=== PATIENT | male | born 1975 | race Two or more races ===

== ENCOUNTER → 2022-05-13 | Emergency (ER) | payer OTHER ==
[~2022-05-13] VITALS: Ht 175.3 cm; Wt 56.7 kg
[~2022-05-13] MED LIST: TOPROL XL25 M1 PO
== END | disposition left against medical advice (07) ==
LOC: ER 08:29
DX: R06.02 Shortness of breath (principal); J93.9 Pneumothorax, unspecified; A49.3 Mycoplasma infection, unspecified site; I10 Essential (primary) hypertension; Z72.0 Tobacco use; Z20.822 Contact with and (suspected) exposure to COVID-19

== ENCOUNTER 2022-05-14 08:01 | Emergency (ER) | payer OTHER ==
[~2022-05-14] VITALS: Ht 175.3 cm; Wt 59.0 kg
== END 2022-05-14 11:12 | disposition home or self-care (01) ==
LOC: ER 08:01
DX: U07.1 COVID-19 (principal); J22 Unspecified acute lower respiratory infection; I10 Essential (primary) hypertension